=== PATIENT | male | born 1975 ===

== ENCOUNTER 2018-12-29 15:03 | Emergency (ER) | payer SELFPAY ==
[2018-12-29 15:09] VITALS: TEMP 97.8
[2018-12-29 15:10] VITALS: BMI 25.1
== END 2018-12-29 15:56 | disposition left against medical advice (07) ==
LOC: ED 15:03
DX: Z02.89 Encounter for other administrative examinations (principal); Z00.00 Encounter for general adult medical examination without abnormal findings